=== PATIENT | female | born 1980 | race Caucasian/White ===

== ENCOUNTER 2019-05-15 10:04 | Inpatient (IN) ==
[2019-05-15] MEDS ORDERED: DOCUSATE SODIUM 100 MG CAPSULE PO PRN (12:20)
[2019-05-15] MEDS ORDERED: hydrALAZINE 20 MG/1 ML VIAL IV PRN (12:20)
[2019-05-15] MEDS ORDERED: ONDANSETRON 4 MG/2 ML VIAL IV PRN (12:20)
[2019-05-15] MEDS: HydrOXYzine PAMOATE 25 MG CAPSULE PO PRN ×2 (12:32→20:01)
[2019-05-15] MEDS: METHOCARBAMOL 750 MG TABLET PO PRN ×2 (12:32→19:09)
[2019-05-15] MEDS: BUPRENORPHINE SL TAB 2 MG TABLET SL SCH ×2 (12:32→20:01)
[2019-05-15] MEDS: SODIUM CHLORIDE 0.9% 1,000 ML IV SCH (12:32)
[2019-05-15 13:03] LABS: Basophils % 0.3 % (0.0-0.8); Eosinophils # 0.1 10*3/uL (0.0-0.87); Eosinophils % 1.4 % (0.00-10.9); Hematocrit 32.8 VOL% (35.7-47.0); Hemoglobin 11.1 GM/DL (12.0-16.0); Immature Granulocytes % 0.6 %; Immature Granulocytes Absolute 0.05 #; Lymphocytes # 2.5 10*3/uL (1.4-4.0); Lymphocytes % 31.9 % (21.3-54.2); Mean Corpuscular HGB Conc 33.8 GM/DL (32-36); Mean Corpuscular Volume 85.4 FL (87-102); Mean Platelet Volume 10.6 FL (9.6-12.0); Monocytes % 5.2 % (1.7-12.7); Neutrophils % 60.6 % (38.7-73.9); Platelet Count 307 T/CUMM (130-400); Red Blood Count 3.84 MC/CUMM (3.8-5.5); Red Cell Distribution Width 14.2 % (9.3-17.3); White Blood Count 7.9 T/CUMM (4-12)
[2019-05-15] MEDS: diphenhydrAMINE 50 MG/1 ML VIAL IV PRN ×2 (13:46→19:09)
[2019-05-15 13:50] LABS: Alanine Aminotransferase 24 U/L (13-56); Albumin 3.4 G/DL (3.4-5.0); Alkaline Phosphatase 129 U/L (45-117); Aspartate Amino Transferase 13 U/L (0-37); Bilirubin,Total < 0.39 MG/DL (0.2-1.0); Blood Urea Nitrogen 12 MG/DL (7-18); Calcium 8.9 MG/DL (8.5-10.1); Estimated Glom Filtration Rate 112 ML/MIN; Glucose 88 MG/DL (74-106); Osmolality,Calculated 273.7 MOS/KG (273-304); Total Protein 6.9 G/DL (6.4-8.3)
[2019-05-15] MEDS: cloNIDine 0.1 MG TABLET PO PRN (17:11)
[2019-05-15] MEDS ORDERED: MAGNESIUM SULF RIDER 2 GM in PREMIX 1 EACH IV ONE ×2 (18:29→21:00)
[2019-05-15] MEDS: POTASSIUM CHLORIDE 20 MEQ TABLET PO PRN ×2 (20:00→23:52)
[2019-05-15] MEDS: traZODone 50 MG TABLET PO PRN (20:01)
[2019-05-15] MEDS: ENOXAPARIN 40 MG/0.4 ML SYRINGE SUBCUT SCH (22:27)
[2019-05-16] MEDS: diphenhydrAMINE 50 MG/1 ML VIAL IV PRN ×3 (01:17→19:15)
[2019-05-16] MEDS: SODIUM CHLORIDE 0.9% 1,000 ML IV SCH ×2 (02:00→22:05)
[2019-05-16] MEDS: HydrOXYzine PAMOATE 25 MG CAPSULE PO PRN ×3 (04:48→20:26)
[2019-05-16] MEDS: BUPRENORPHINE SL TAB 2 MG TABLET SL SCH ×3 (04:48→22:05)
[2019-05-16 06:01] LABS: Basophils % 0.3 % (0.0-0.8); Eosinophils # 0.2 10*3/uL (0.0-0.87); Hematocrit 31.5 VOL% (35.7-47.0); Hemoglobin 10.1 GM/DL (12.0-16.0); Immature Granulocytes % 0.6 %; Immature Granulocytes Absolute 0.05 #; Lymphocytes % 45.7 % (21.3-54.2); Mean Corpuscular HGB Conc 32.1 GM/DL (32-36); Mean Corpuscular Volume 88.7 FL (87-102); Mean Platelet Volume 10.4 FL (9.6-12.0); Monocytes % 3.8 % (1.7-12.7); Neutrophils % 47.6 % (38.7-73.9); Platelet Count 273 T/CUMM (130-400); Red Blood Count 3.55 MC/CUMM (3.8-5.5); Red Cell Distribution Width 14.8 % (9.3-17.3); White Blood Count 8.8 T/CUMM (4-12)
[2019-05-16 06:30] LABS: Calcium 8.6 MG/DL (8.5-10.1)
[2019-05-16] MEDS: METHOCARBAMOL 750 MG TABLET PO PRN ×2 (11:08→19:17)
[2019-05-16] MEDS: traZODone 50 MG TABLET PO PRN (20:26)
[2019-05-16] MEDS: ENOXAPARIN 40 MG/0.4 ML SYRINGE SUBCUT SCH (22:05)
[2019-05-16] MEDS: ACETAMINOPHEN 325 MG TABLET PO PRN (23:36)
[2019-05-16] MEDS: cloNIDine 0.1 MG TABLET PO PRN (23:36)
[2019-05-17] MEDS: diphenhydrAMINE 50 MG/1 ML VIAL IV PRN ×4 (00:56→19:24)
[2019-05-17] MEDS: METHOCARBAMOL 750 MG TABLET PO PRN ×4 (00:59→19:27)
[2019-05-17] MEDS: ACETAMINOPHEN 325 MG TABLET PO PRN ×2 (04:32→14:17)
[2019-05-17] MEDS: HydrOXYzine PAMOATE 25 MG CAPSULE PO PRN ×3 (04:32→20:29)
[2019-05-17] MEDS: BUPRENORPHINE SL TAB 2 MG TABLET SL SCH ×2 (04:32→14:18)
[2019-05-17 05:10] LABS: Basophils % 0.2 % (0.0-0.8); Eosinophils # 0.2 10*3/uL (0.0-0.87); Eosinophils % 1.9 % (0.00-10.9); Hematocrit 30.2 VOL% (35.7-47.0); Hemoglobin 9.8 GM/DL (12.0-16.0); Immature Granulocytes % 0.5 %; Immature Granulocytes Absolute 0.05 #; Lymphocytes # 3.1 10*3/uL (1.4-4.0); Lymphocytes % 31.3 % (21.3-54.2); Mean Corpuscular HGB Conc 32.5 GM/DL (32-36); Mean Corpuscular Volume 87.5 FL (87-102); Mean Platelet Volume 10.3 FL (9.6-12.0); Monocytes % 4.3 % (1.7-12.7); Neutrophils % 61.8 % (38.7-73.9); Platelet Count 268 T/CUMM (130-400); Red Blood Count 3.45 MC/CUMM (3.8-5.5); Red Cell Distribution Width 14.6 % (9.3-17.3)
[2019-05-17 05:28] LABS: Calcium 8.6 MG/DL (8.5-10.1); Osmolality,Calculated 279.3 MOS/KG (273-304)
[2019-05-17 11:53] LABS: Apearance,Urine CLEAR (Clear); Bilirubin,Urine Negative (Negative); Blood, Urine Negative (Negative); Glucose,Urine (UA) Negative (Negative); Ketones,Urine Negative (Negative); Mucus,Urine Occasional /LPF (Occasional); Nitrite,Urine Negative (Negative); Protein,Urine Negative; RBC,Urine <1 /HPF (0-4); Squamous Epithelial Cell,Urine Occasional /HPF (0-10); Urine Color Straw (Yellow); Urine Urobilinogen < 2.0 EU/DL (0.2-1.0); WBC,Urine <1 /HPF (0-6)
[2019-05-17 12:06] LABS: Barbiturates Screen,Urine Negative (Negative); Benzodiazepines Screen,Urine Negative (Negative); Cannabinoid Screen,Urine Negative (Negative); Opiate Screen,Urine Negative (Negative); Phencyclidine Screen,Urine Negative (Negative)
[2019-05-17] MEDS: SODIUM CHLORIDE 0.9% 1,000 ML IV SCH ×2 (16:13→18:10)
[2019-05-17] MEDS: cloNIDine 0.1 MG TABLET PO PRN (18:09)
[2019-05-17] MEDS: traZODone 50 MG TABLET PO PRN (20:29)
[2019-05-17] MEDS: ENOXAPARIN 40 MG/0.4 ML SYRINGE SUBCUT SCH (22:02)
[2019-05-18] MEDS: diphenhydrAMINE 50 MG/1 ML VIAL IV PRN ×2 (01:17→05:25)
[2019-05-18] MEDS: METHOCARBAMOL 750 MG TABLET PO PRN ×2 (01:19→05:27)
[2019-05-18] MEDS: BUPRENORPHINE SL TAB 2 MG TABLET SL SCH (01:32)
[2019-05-18 05:29] LABS: Basophils % 0.3 % (0.0-0.8); Eosinophils # 0.2 10*3/uL (0.0-0.87); Eosinophils % 2.6 % (0.00-10.9); Hematocrit 30.8 VOL% (35.7-47.0); Immature Granulocytes % 0.6 %; Immature Granulocytes Absolute 0.05 #; Lymphocytes % 38.6 % (21.3-54.2); Mean Corpuscular HGB Conc 32.5 GM/DL (32-36); Mean Corpuscular Volume 87.7 FL (87-102); Mean Platelet Volume 10.5 FL (9.6-12.0); Monocytes % 4.1 % (1.7-12.7); Neutrophils % 53.8 % (38.7-73.9); Platelet Count 279 T/CUMM (130-400); Red Blood Count 3.51 MC/CUMM (3.8-5.5); Red Cell Distribution Width 14.4 % (9.3-17.3); White Blood Count 7.8 T/CUMM (4-12)
[2019-05-18 06:08] LABS: Calcium 8.3 MG/DL (8.5-10.1); Osmolality,Calculated 279.3 MOS/KG (273-304)
[2019-05-18] MEDS ORDERED: POTASSIUM CHLORIDE 20 MEQ/15 ML UDCUP PO ONE (08:29)
[2019-05-18] MEDS: SODIUM CHLORIDE 0.9% 1,000 ML IV SCH (08:35)
[2019-05-18 09:09] VITALS: BP 114/68
== END 2019-05-18 09:45 | DRG 897 ==
LOC: N.4E 10:25
PROVIDERS: ADMIT Internal Medicine; ATTEND Internal Medicine